=== PATIENT | male | born 1935 | race Caucasian/White ===

== ENCOUNTER 2024-05-01 17:10 | Inpatient (IN) | payer SELFPAY ==
[~2024-05-01] VITALS: Ht 152.4 cm; Wt 47.6 kg
[2024-05-01] MEDS: ACETAMINOPHEN 325MG TABLET PO STA (18:30)
[2024-05-01 19:17] LABS: HEMATOCRIT 41.2 % (42.0-52.0); HEMOGLOBIN 13.1 g/dL (14.0-18.0); MEAN CORPUSCULAR HEMOGLOBIN 30.2 pg (28.0-32.0); MEAN CORPUSCULAR HGB CONC 31.8 g/dL (31.0-37.0); MEAN CORPUSCULAR VOLUME 95.1 fL (80.0-94.0); PLATELET 173 x1000/uL (130-400); RED BLOOD CELL COUNT 4.33 mill/uL (4.7-6.1); RED CELL DISTRIBUTION WIDTH 14.9 % (11.6-14.6); WHITE BLOOD COUNT 19.8 x1000/uL (4.5-11.0)
[2024-05-01 19:25] LABS: CHLORIDE 109 mEq/L (98-107); POTASSIUM 5.2 mEq/L (3.5-5.1); SODIUM 137 mEq/L (136-145)
[2024-05-01 19:26] LABS: CARBON DIOXIDE 21 mEq/L (21-32)
[2024-05-01 19:27] LABS: CALCIUM 8.3 mg/dL (8.7-10.4)
[2024-05-01 19:31] LABS: CREATININE 1.2 mg/dL (0.6-1.3); GLUCOSE 106 mg/dL (70-105); UREA NITROGEN BLOOD 23 mg/dL (9-23)
[2024-05-01 19:32] LABS: TROPONIN I HIGH SENSITIVITY 10 ng/L (3.0-53)
[2024-05-01] MEDS: PIPERACILLIN/TAZO 3.375G/50ML 50 ML IV ONE (19:32)
[2024-05-01] MEDS: SODIUM CHLORIDE 0.9% 1000ML BAG (SEPSIS BOLUS) IV ONE (19:32)
[2024-05-01 19:33] LABS: INR 1.1; PROTHROMBIN TIME 12.5 sec (9.6-11.0)
[2024-05-01 19:51] LABS: ALANINE AMINOTRANSFERASE 34 IU/L (10-49); ASPARTATE AMINOTRANSFERASE 39 IU/L (<34); BILIRUBIN DIRECT 0.4 mg/dL (<=3.0); BILIRUBIN TOTAL 1.1 mg/dL (0.1-1.0)
[2024-05-01] MEDS: ACETAMINOPHEN 325MG TABLET PO ONE (20:00)
[2024-05-01 20:44] LABS: HEMATOCRIT. 36.6 % (42.0-52.0); MEAN CORPUSCULAR HEMOGLOBIN 30.6 pg (28.0-32.0); MEAN CORPUSCULAR HGB CONC 32.9 g/dL (31.0-37.0); MEAN CORPUSCULAR VOLUME 93.1 fL (80.0-94.0); MEAN PLATELET VOLUME 7.3 fl (7.4-10.4); PLATELET 156 x1000/uL (130-400); RED BLOOD CELL COUNT 3.94 mill/uL (4.7-6.1); RED CELL DISTRIBUTION WIDTH 14.4 % (11.6-14.6); WHITE BLOOD COUNT 17.5 x1000/uL (4.5-11.0)
[2024-05-01 20:45] LABS: DIFFERENTIAL COMMENT 1
[2024-05-01 20:47] LABS: TROPONIN I HIGH SENSITIVITY 11 ng/L (3.0-53)
[2024-05-01] MEDS: SODIUM CHLORIDE 0.9% 500 ML IV ONE (21:29)
[2024-05-01] MEDS: VANCOMYCIN 1G PREMIX 200 ML IV ONE (21:29)
[2024-05-01] MEDS ORDERED: KETOROLAC 15MG/ML VIAL IV PRN (21:30)
[2024-05-01] MEDS ORDERED: ACETAMINOPHEN 325MG TABLET PO PRN (21:30)
[2024-05-01] MEDS ORDERED: IPRATROPIUM/ALBUTEROL 0.5-3(2.5)MG/3ML NEB NEB PRN (21:30)
[2024-05-01] MEDS ORDERED: DOCUSATE SODIUM 100MG CAPSULE PO PRN (21:30)
[2024-05-01] MEDS ORDERED: CLONIDINE 0.1MG TABLET PO PRN (21:30)
[2024-05-01] MEDS ORDERED: MAGNESIUM/ALUMINUM HYDROXIDE/SIMETHICONE 30ML UDC PO PRN (21:30)
[2024-05-01] MEDS ORDERED: ONDANSETRON HCL 4MG/2ML INJ IV PRN (21:30)
[2024-05-01] MEDS ORDERED: ZOLPIDEM TARTRATE 5MG TABLET PO PRN (21:30)
[2024-05-01] MEDS ORDERED: NITROGLYCERIN 0.4MG TABLET SL SL PRN (21:30)
[2024-05-01] MEDS ORDERED: GUAIFENESIN 200MG/10ML SUGAR FREE UDC PO PRN (21:30)
[2024-05-01 22:29] LABS: IRON 16 ug/dL (65-175)
[2024-05-01 22:30] LABS: LDL CHOLESTEROL 169 mg/dL (5-100); TRIGLYCERIDE 100 mg/dL (0-150)
[2024-05-01 22:31] LABS: CHOLESTEROL 215 mg/dL (<200); HDL CHOLESTEROL 36 mg/dL (>55)
[2024-05-01 22:32] LABS: TOTAL IRON BINDING CAPACITY 263 ug/dl (250-425)
[2024-05-01 22:35] LABS: THYROID STIMULATING HORMONE 0.53 uIU/mL (0.55-4.78)
[2024-05-01 22:35] LABS: FOLIC ACID (FOLATE) SERUM > 20.00 ng/mL (>5.38); VITAMIN B12 SERUM 315 pg/mL (211-911)
[2024-05-01] MEDS: AZITHROMYCIN 500MG/250ML 250 ML IV SCH (22:38)
[2024-05-01] MEDS: LACTATED RINGERS 1,000 ML IV SCH (22:38)
[2024-05-01 22:59] LABS: CLARITY URINE CLEAR (CLEAR); COLOR URINE YELLOW (YELLOW); GLUCOSE URINE NEGATIVE (NEGATIVE); KETONES URINE 1+ (NEGATIVE); LEUKOCYTE ESTERASE URINE 2+ (NEGATIVE); NITRITE URINE NEGATIVE (NEGATIVE); OCCULT BLOOD URINE NEGATIVE (NEGATIVE); PROTEIN URINE NEGATIVE (NEGATIVE); SPECIFIC GRAVITY URINE 1.014 (1.005-1.030)
[2024-05-01 23:06] LABS: *AMPHETAMINES SCREEN URINE NEGATIVE (NEGATIVE); *BARBITURATES SCREEN URINE NEGATIVE (NEGATIVE); *BENZODIAZEPINES SCREEN URINE NEGATIVE (NEGATIVE); *COCAINE SCREEN URINE NEGATIVE (NEGATIVE); CANNABINOID URINE SCREEN NEGATIVE (NEGATIVE); ECSTASY MDMA SCREEN URINE NEGATIVE (NEGATIVE); METHADONE URINE SCREEN NEGATIVE (NEGATIVE); OPIATES URINE SCREEN NEGATIVE (NEGATIVE); PHENCYCLIDINE URINE SCREEN NEGATIVE (NEGATIVE)
[2024-05-01 23:11] LABS: RBC URINE 0-2 /hpf (0-2); SQUAMOUS EPITHELIAL CELL URINE NONE SEEN /lpf (RARE/1+)
[2024-05-01 23:12] LABS: BACTERIA URINE TRACE; YEAST URINE NONE SEEN
[2024-05-01 23:17] LABS: PLATELET ESTIMATE NORMAL
[2024-05-01 23:50] LABS: CREATINE KINASE MB FRACTION 1.2 ng/mL (0.5-3.6)
[2024-05-02] MEDS: SODIUM POLYSTYRENE SULFONATE 15 G/60 ML BOT PO NR (02:10)
[2024-05-02] MEDS: CEFTRIAXONE 1GM/50ML 50 ML IV SCH (09:18)
[2024-05-02] MEDS: ASCORBIC ACID 500 MG TABLET PO SCH (09:19)
[2024-05-02] MEDS: FAMOTIDINE 20MG TABLET PO SCH (09:19)
[2024-05-02] MEDS: ENOXAPARIN 30MG/0.3ML SYR SUBCUT SCH (09:19)
[2024-05-02] MEDS: ZINC SULFATE 220 MG ( 50 ) CAPSULE PO SCH (09:19)
[2024-05-02 10:20] LABS: CHLORIDE 112 mEq/L (98-107); POTASSIUM 3.9 mEq/L (3.5-5.1); SODIUM 139 mEq/L (136-145)
[2024-05-02 10:21] LABS: BASOPHILS % 0.1 % (0.0-2.0); CALCIUM 7.3 mg/dL (8.7-10.4); CARBON DIOXIDE 19 mEq/L (21-32); HEMATOCRIT. 34.8 % (42.0-52.0); HEMOGLOBIN. 11.2 g/dL (14.0-18.0); LYMPHOCYTES % 7.3 % (20.0-50.0); MEAN CORPUSCULAR HEMOGLOBIN 30.4 pg (28.0-32.0); MEAN CORPUSCULAR HGB CONC 32.3 g/dL (31.0-37.0); MEAN CORPUSCULAR VOLUME 94.3 fL (80.0-94.0); MEAN PLATELET VOLUME 7.9 fl (7.4-10.4); MONOCYTES % 5.4 % (2.0-8.0); NEUTROPHILS % 87.2 % (40.0-76.0); PLATELET 134 x1000/uL (130-400); RED CELL DISTRIBUTION WIDTH 14.3 % (11.6-14.6); WHITE BLOOD COUNT 21.1 x1000/uL (4.5-11.0)
[2024-05-02 10:26] LABS: GLUCOSE 112 mg/dL (70-105)
[2024-05-02 10:27] LABS: UREA NITROGEN BLOOD 15 mg/dL (9-23)
[2024-05-02 10:28] LABS: ALANINE AMINOTRANSFERASE 28 IU/L (10-49); ASPARTATE AMINOTRANSFERASE 32 IU/L (<34)
[2024-05-02 10:29] LABS: BILIRUBIN TOTAL 0.7 mg/dL (0.1-1.0); PHOSPHORUS 2.8 mg/dL (2.5-4.9); PROTEIN TOTAL 5.6 g/dL (6.0-8.3)
[2024-05-02 10:30] LABS: CREATINE KINASE MB FRACTION 1.7 ng/mL (0.5-3.6)
[2024-05-02 15:00] VITALS: BP 107/49; PULSE 72; PULSE 97; RESP 20; TEMP 38.364; TEMP 38.78088; O2SAT 97
[2024-05-02 16:00] VITALS: BP 105/55; PULSE 97; RESP 20; TEMP 38.3364; O2SAT 98
[2024-05-02] MEDS: AZITHROMYCIN 500MG/250ML 250 ML IV SCH (17:32)
[2024-05-02] MEDS: ACETAMINOPHEN 325MG TABLET PO PRN (17:37)
[2024-05-02 20:00] VITALS: BP 89/52; PULSE 72; RESP 20; TEMP 36.6696; O2SAT 97
[2024-05-03] VITALS: BP 116/56; PULSE 68; RESP 20; TEMP 36.89184; O2SAT 97
[2024-05-03 04:00] VITALS: BP 108/58; PULSE 58; RESP 20; TEMP 37.00296; O2SAT 99
[2024-05-03 08:00] VITALS: BP 125/64; PULSE 63; RESP 20; TEMP 36.61404; O2SAT 96
[2024-05-03] MEDS: FAMOTIDINE 20MG TABLET PO SCH (08:48)
[2024-05-03] MEDS: CEFTRIAXONE 1GM/50ML 50 ML IV SCH (08:48)
[2024-05-03] MEDS ORDERED: ESCI5SOL2 PO (11:14)
[2024-05-03 12:00] VITALS: BP 132/63; PULSE 65; RESP 20; TEMP 36.72516; O2SAT 100
[2024-05-03 16:00] VITALS: BP 115/79; PULSE 60; RESP 18; TEMP 36.44736; O2SAT 98
[2024-05-03] MEDS: AZITHROMYCIN 500MG/250ML 250 ML IV SCH (18:27)
[2024-05-03 20:00] VITALS: BP 132/67; PULSE 66; RESP 18; TEMP 36.89184; O2SAT 98
[2024-05-04] VITALS: BP 122/56; PULSE 60; RESP 20; TEMP 36.78072; O2SAT 98
[2024-05-04 04:00] VITALS: BP 101/59; PULSE 62; RESP 20; TEMP 36.22512; O2SAT 98
[2024-05-04 08:00] VITALS: BP 131/62; PULSE 60; RESP 20; TEMP 36.6696; TEMP 36.66960; O2SAT 98
[2024-05-04] MEDS ORDERED: CEPH500T MT (10:58)
[2024-05-04 12:10] VITALS: BP 130/70; PULSE 66; TEMP 97.6; O2SAT 97
== END 2024-05-04 15:00 | disposition home or self-care (01) | DRG 720 ==
LOC: ER 17:33 → EDBD 17:33 → 5WST 20:47 → EDBEDREQSVC 22:05 → 8WST 05-02 15:00
PROVIDERS: ADMIT Internal Medicine; ATTEND Internal Medicine
DX: A41.9 Sepsis, unspecified organism (principal); G92.8 Other toxic encephalopathy; J18.9 Pneumonia, unspecified organism; F03.90 Unspecified dementia, unspecified severity, without behavioral disturbance, psychotic disturbance, mood disturbance, and anxiety; E83.51 Hypocalcemia; E87.5 Hyperkalemia; B96.20 Unspecified Escherichia coli [E. coli] as the cause of diseases classified elsewhere; N39.0 Urinary tract infection, site not specified; Z20.822 Contact with and (suspected) exposure to COVID-19
CPT/HCPCS: 36415; 71045; 74176; 80048; 80053; 80061; 80076; 80305; 81003; 82550; 82553; 82607; 82746; 82962; 83036; 83540; 83550; 83605; 83735; 84100; 84145; 84443; 84484; 85025; 85027; 87186; 87426; 87804; 93005; 93306; 93970; 99291; J0456; J0696; J1650; J2543; J3370; J7040